=== PATIENT | male | born 1980 | race Caucasian/White ===

== ENCOUNTER 2018-01-31 18:47 | Inpatient (IN) | payer BC ==
[~2018-01-31] VITALS: Ht 180.3 cm; Wt 94.8 kg
--- NOTE | 2018-01-31 18:47 | NUR ---
PATIENT BIBA TO BED 11 AT THIS TIME.
[2018-01-31 18:51] VITALS: BP 116/75
[2018-01-31] MEDS ORDERED: HYDROCHLOROTHIAZIDE 25 MG TAB (18:54)
[2018-01-31] MEDS ORDERED: NACL 0.9% 2,000 ML IV ONE (18:55)
--- NOTE | 2018-01-31 19:00 | NUR ---
PT BIBA 51/50 SUICIDAL IDEATION. PATIENT REPORTS DRINKING 3 CANS OF FOSTER'S BEER. PATIENTS AFFECT IS FLAT AND DEPRESSED. COOPERATIVE. NO COMPLAINTS OF PAIN. DENIES N/V/D; SKIN IS PINK/WARM/DRY; AAOX4 WITH EVEN AND STEADY GAIT; PATIENT POSITIONED FOR COMFORT; HOB ELEVATED; BEDRAILS UP X2; BED DOWN. ER MD MADE AWARE OF PT STATUS.
--- NOTE | 2018-01-31 19:08 | NUR ---
REPORT GIVEN TO ANDREA
--- NOTE | 2018-01-31 19:10 | NUR ---
PT PROVIDED W/ URINAL BUT STATES HE CANNOT URINATE AT THIS TIME.
--- NOTE | 2018-01-31 19:24 | NUR ---
Moved pt to bed 4.
--- NOTE | 2018-01-31 19:25 | NUR ---
ASSUMED CARE OF PT AT THIS TIME. PT RECEIVED TO BED 4 FROM BED 11. PT ON 5150 HOLD BY [place] [employer] FOR STATEMENTS MADE BY THE PT AT WORK OF FEELING DEPRESSED/SUICIDAL AND "SAYING GOODBYES." ON ARRIVAL TO ER, PT DENIES HI. PT AWAITS MEDICAL CLEARANCE AND PSYCH FACICILTY PLACEMENT. NAD. VSS. WILL CONTINUE TO MONITOR.
[2018-01-31 19:28] LABS: BASOPHILS % (AUTO) 0.4 % (0.0-2.0); EOSINOPHILS # (AUTO) 0.1 K/uL (0-0.4); EOSINOPHILS % (AUTO) 1.2 % (0.0-4.0); HEMATOCRIT 46.9 % (36-52); LYMPHOCYTES # (AUTO) 1.9 K/uL (2.0-11.5); LYMPHOCYTES % (AUTO) 23.3 % (20.5-51.1); MEAN CORPUSCULAR HEMOGLOBIN 29 pg (27-31); MEAN CORPUSCULAR HGB CONC 34 g/dL (33-37); MEAN CORPUSCULAR VOLUME 86.2 fL (80-94); MONOCYTES # (AUTO) 0.5 K/uL (0.8-1.0); MONOCYTES % (AUTO) 6.4 % (1.7-9.3); NEUTROPHILS # (AUTO) 5.6 K/uL (1.8-7.7); NEUTROPHILS % (AUTO) 68.7 % (42.2-75.2); PLATELET COUNT (AUTO) 283 K/uL (140-450); RED BLOOD CELL COUNT(AUTO) 5.44 MIL/uL (4.20-6.10); RED CELL DISTRIBUTION WIDTH 13.5 % (11.6-13.7); WHITE BLOOD COUNT (AUTO) 8.2 K/uL (4.8-10.8)
[2018-01-31 19:32] LABS: ANION GAP 13.7 (8-16); CHLORIDE 105 mmol/L (98-107); CREATININE 1.2 mg/dL (0.7-1.3); GFR ARICAN-AMERICAN 87 mL/min (>90); GLUCOSE 117 mg/dL (74-106); POTASSIUM 3.7 mmol/L (3.5-5.1); SODIUM SERUM 141 mmol/L (136-145); UREA NITROGEN, BLOOD 9 mg/dL (7-18)
[2018-01-31 19:39] LABS: ALBUMIN 3.8 g/dL (3.4-5.0); ASPARTATE AMINOTRANSFERASE 21 U/L (15-37); TOTAL BILIRUBIN 0.4 mg/dL (0.0-1.0)
[2018-01-31 19:41] LABS: ACETAMINOPHEN < 0.5 ug/ml (10-30); SALICYLATE < 2.8 mg/dL (2.8-20.0)
[2018-01-31 19:50] LABS: PROTHROMBIN TIME 10.3 secs (10.8-13.4)
[2018-01-31 20:18] LABS: BARBITURATE, URINE NEG. ng/ml (NEG <=200); BENZODIAZEPINE, URINE NEG. ng/mL (NEG <=200); CANNABINOID, URINE NEG. ng/mL (NEG <=50); COCAINE, URINE NEG. ng/mL (NEG <=300); OPIATE, URINE NEG. ng/mL (NEG <=2000); PHENCYCLIDINE SCREEN,URINE NEG. ng/mL (NEG <=25)
--- NOTE | 2018-02-01 01:43 | NUR ---
Called [facility] and spoke with Anne. No beds available. Called [facility] and spoke with Lianne. No beds. Will fax packet.
--- NOTE | 2018-02-01 02:05 | NUR ---
Called [facility] and spoke with Kenya. Possible bed, packet faxed.
--- NOTE | 2018-02-01 02:11 | NUR ---
Called [facility] and spoke with Paco. No beds available for [facility].
--- NOTE | 2018-02-01 02:15 | NUR ---
PT SLEEPING...RESP. EVEN/UNLABORED. NAD. VSS. PT AWAITS PSYCH PLACEMENT. WILL CONTINUE TO MONITOR.
[2018-02-01] MEDS ORDERED: ACETAMINOPHEN 325 MG TAB PO PRN (04:30)
[2018-02-01] MEDS ORDERED: ONDANSETRON 4 MG/2 ML VIAL IVP PRN (04:30)
[2018-02-01] MEDS ORDERED: LORazepam 2 MG/ML VIAL IVP PRN (04:35)
--- NOTE | 2018-02-01 04:40 | NUR ---
Patient will be admitted to care of [facility]. Admited to TELE. Will go to room 104B. Belongings list completed. Report to CHARGE, RN.
--- NOTE | 2018-02-01 04:45 | NUR ---
PT ARRIVED ON THE UNIT FROM ER, REPORT GIVEN BY DAWSON GOMEZ. PT IN STABLE CONDITION. NO S/S OF DISTRESS NOTED. PT IS ON RA. NO IV ACCESS AT THIS TIME, PT DOES NOT NEED IT PER ER DOCTOR. SKIN WARM AND DRY TO TOUCH, COLOR WNL. RR EVEN/UNLABORED. PT CAME TO ER WITH CC: TEXTING HIS MOM WHILE HE IS DRUNK SAYING HE DOESN'T WANT TO BE ON EARTH ANYMORE. PT STATES, "IT WAS DUMB AND I FEEL STUPID, I WAS JUST WANTING ATTENTION." INITIAL ASSESSMENT COMPLETED, PLAN OF CARE DISCUSSED WITH PT, VERBALIZED UNDERSTANDING. ALL SAFETY PRECAUTIONS MET, CALL LIGHT WITHIN REACH, 1:[address], WILL CONTINUE TO MONITOR
[2018-02-01 04:54] VITALS: BP 148/94
--- NOTE | 2018-02-01 05:32 | NUR ---
PT HAS NO PLAN IN PLACE, NO INTENTION TO HARM SELF
[2018-02-01 07:02] LABS: CHOL/HDL RATIO 5.9 (1-4.5); FREE T4 (FREE THYROXINE) 0.9 ng/dL (0.76-1.46); MAGNESIUM 2.4 mg/dL (1.8-2.4); THYROID STIMULATING HORMONE 1.1 uIU/mL (0.34-3.74)
--- NOTE | 2018-02-01 07:20 | NUR ---
REPORT GIVEN TO DAY NURSE FOR CONTINUITY OF CARE, PT IN STABLE CONDITION.
--- NOTE | 2018-02-01 07:25 | NUR ---
RECEIVED REPORT FROM BAILING MACHINE OPERATOR NURSE, PT IS RESTING IN BED, AAOX4, AMBULATORY, NO S/S OF RESPIRATORY DISTRESS OR DISCOMFORT NOTED, PT HAS NO IV ACCESS, AWARE, DISCUSSED PLAN OF CARE WITH PT, PT VERBALIZED UNDERSTANDING, SAFETY/FALL/SUICIDE PRECAUTIONS ARE IN PLACE, 1:1 SITTER IS AT BEDSIDE, WILL CONTINUE TO MONITOR.
[2018-02-01 08:00] VITALS: BP 141/89
[2018-02-01] MEDS ORDERED: MULTIVITAMIN 1 TAB PO SCH (09:00)
[2018-02-01] MEDS ORDERED: THIAMINE 100 MG TAB PO SCH (09:00)
[2018-02-01] MEDS ORDERED: FOLIC ACID 1 MG TAB PO SCH (09:00)
[2018-02-01] MEDS ORDERED: DOCUSATE SODIUM 100 MG GELCAP PO SCH (09:00)
[2018-02-01] MEDS ORDERED: HYDROCHLOROTHIAZIDE 25 MG TAB PO SCH (09:00)
--- NOTE | 2018-02-01 09:00 | NUR ---
DUE MEDICATION GIVEN, PT TOLERATED WELL. PT REFUSED LIBRIUM AND COLACE.
--- NOTE | 2018-02-01 09:31 | NUR ---
[facility] has received shift report. Packets are currently on file with [facility] and [facility]. There are currently no beds available. We will continue to make calls for assistance with placement.
--- NOTE | 2018-02-01 09:52 | NUR ---
PATIENT HAS BEEN SCREENED AND CATEGORIZED LOW NUTRITION RISK. PATIENT WILL BE SEEN WITHIN 7 DAYS OF ADMISSION. 02/07/[address]
--- NOTE | 2018-02-01 11:47 | NUR ---
PT IS RESTING IN BED, FAMILY MEMBER IS AT BEDSIDE, 1:1 SITTER IS AT BEDSIDE.
--- NOTE | 2018-02-01 12:18 | NUR ---
GABY NOTE RECEIVED A CALL FROM TAWANNA WHO IS TRAINING UNDER REGISTERED MEDICAL TRANSCRIPTIONIST [employer] WHO STATED THAT SHE SPOKE WITH SOMEONE FROM [facility] WHO SAID THAT NO PRECERTIFICATION REQUIRED BECAUSE IT IS AN ER ADMIT AND THAT THEY DON'T NEED REVIEWS TO BE FAXED TO THEM. Addendum: 02/01/18 at 1459 by Chanell Gordon CM REF# [id number]
--- NOTE | 2018-02-01 13:20 | NUR ---
PT IS QUIET, CALM, RESTING IN BED WATCHING TV, NO S/S OF DISTRESS OR DISCOMFORT NOTED, 1:1 SITTER IS AT BEDSIDE. WILL CONTINUE TO MONITOR
--- NOTE | 2018-02-01 13:36 | NUR ---
The [facility] is reviewing for assistance with placement.
--- NOTE | 2018-02-01 13:56 | NUR ---
Contacted [facility] and verified patient eligible. BS PPO ID#[id number]. [employer]. Call Reference number#[id number].
--- NOTE | 2018-02-01 15:04 | NUR ---
Placement packets have been sent to [facility], [facility], and [facility]. Both [facility] and [facility] have beds available. Israel with [facility] to call and advised patient accepted.
--- NOTE | 2018-02-01 15:30 | NUR ---
PT IS RESTING IN BED, INTERACTING WITH FAMILY WHO IS AT BEDSIDE.
--- NOTE | 2018-02-01 15:58 | NUR ---
Alia from [facility] called to check if bed was still needed for patient. I provided them the phone number to the unit.
--- NOTE | 2018-02-01 16:13 | NUR ---
Called and spoke with Nneka regarding [facility] accepting patient. She is waiting to speak with the doctor regarding patient and will callback. Contacted Alia with [facility] Chrissy, she is waiting for Nneka to callback and advise if bed placement still needed.
--- NOTE | 2018-02-01 16:15 | NUR ---
GOT A CALL FROM LALO GRIFFIN FROM [facility] ([phone]) REGARDING A BED AVAILABLE IN [facility] FOR THE PT. NOTIFIED LALO THAT PT WANTS TO WAIT FOR PSYCH TO REEVALUATE HIM. SPOKE WITH DR. CANDELARIO (RESIDENT) REGARDING THIS ISSUE, STATED HE IS NOT COMFORTABLE SENDING THIS PT TO THE PSYCH FACILITY UNTIL SEEN BY PSYCH CONSULT WELL. DR. CANDELARIO ALSO CALLED DR. CASANOVA (ATTENDING) AND STATED TO WAIT FOR PSYCH WHICH IS ON HER WAY TO SEE PT. DR. CANDELARIO MADE THIS PT A PRIORITY TO BE SEEN FIRST BY PSYCH CONSULT. NICO NEWTON MERCHANT PATROLLER NOTIFIED IF THIS ISSUE WELL.
--- NOTE | 2018-02-01 16:15 | NUR ---
RECEIVED A PHONE CALL FROM DOMO WITH [facility] AT [phone]. SHE SAID THEY HAD A BED AVAILABLE FOR THE PATIENT. I TOLD HER I NEEDED TO CHECK AND SEE IF PATIENT STILL NEEDED TO BE TRANSFERRED AND I WOULD CALL HER BACK.
--- NOTE | 2018-02-01 16:20 | NUR ---
CALLED DOMO BACK I LET THEM KNOW THE PATIENT WAS WAITING TO BE EVALUATED BY THE PSYCH DOCTOR AND PT ALSO DID NOT WANT TO BE TRANSFERRED AT THIS TIME. I LET THEM KNOW BED WAS NOT NEEDED AT THIS TIME. DR. CANDELARIO IS AWARE.
--- NOTE | 2018-02-01 16:30 | NUR ---
GOT A CALL FROM BASILIO FROM [facility] ([phone]) REGARDING PT'S TRANSFER TO AVAILABLE BED IN [facility]. TOLD HER THAT PT IS STILL REFUSING AND IS WAITING FOR THE PSYCH CONSULT FOR REEVALUATION.
--- NOTE | 2018-02-01 16:43 | NUR ---
I RECEIVED A PHONE CALL FROM FRANCISCO FROM [facility] AT [phone], SHE WAS CALLING ME TO LET ME KNOW THERE WAS A BED AVAILABLE. I LET HER KNOW THE PATIENT WAS BEING EVALUATED BY THE PSYCH DOCTOR AT THIS TIME, (DR. CASTLELANOS) I TOLD HER I WOULD CALL HER BACK TO LET HER KNOW IF THE BED WAS NEEDED OR IF THE PATIENT WAS CLEARED TO BE DISCHARGED HOME.
--- NOTE | 2018-02-01 16:50 | NUR ---
CALLED LALO AND BASILIO, NOTIFIED THEM THAT DR. CASTELLANOS IS HERE TO REEVALUATE PT. WILL GIVE LALO A CALL SOON DR. CASTELLANOS IS DONE ON HER EVALUATION.
[2018-02-01 17:18] VITALS: BP 142/99
--- NOTE | 2018-02-01 17:40 | NUR ---
CALLED LALO GRIFFIN FROM [facility], NOTIFIED HER THAT PT DOES NOT MEET CRITERIA FOR [address] CA[address]LL[address].
--- NOTE | 2018-02-01 18:16 | NUR ---
DISCHARGE INSTRUCTIONS GIVEN, PT ID WRIST BAND REMOVED. PT STABLE UPON DISCHARGE ACCOMPANIED BY HIS MOTHER AND FRIEND.
--- NOTE | 2018-02-01 18:31 | NUR ---
CALLED FRANCISCO FROM [facility], I DID SPEAK TO HER, I LET HER KNOW THE PATIENT HAD BEEN SEEN BY PSYCH AND DID NOT MEET THE CRITERIA TO BE TRANSFERRED AND WAS BEING DISCHARGED HOME.
== END 2018-02-01 18:16 | disposition home or self-care (01) | DRG 304 ==
LOC: MED 18:47 → MTU 02-01 04:28
PROVIDERS: ADMIT Family Medicine Sports Medicine; ATTEND Family Medicine Sports Medicine
DX: I10 Essential (primary) hypertension (principal); G92 Toxic encephalopathy; R45.851 Suicidal ideations; F33.1 Major depressive disorder, recurrent, moderate; F10.129 Alcohol abuse with intoxication, unspecified; Y90.6 Blood alcohol level of 120-199 mg/100 ml; F17.210 Nicotine dependence, cigarettes, uncomplicated; Z91.5 Personal history of self-harm
CPT/HCPCS: 36415; 80053; 80305; 82150; 83036; 83690; 83735; 83880; 84100; 84439; 84443; 85025; 85610; 87081; 93005; 96360; 96361; 99285; G0480; G0482